=== PATIENT | female | born 1975 | race Two or more races ===

== ENCOUNTER 2025-06-11 10:02 | Emergency (ER) | payer MEDICAID, SELFPAY ==
[2025-06-11 10:03] VITALS: BMI 29.0
[2025-06-11 10:22] VITALS: BP 136/70; PULSE 78; RESP 18; TEMP 36.9; O2SAT 99
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
--- NOTE | 2025-06-11 11:48 | PC.NURSE ---
PT CALLED IN ED LOBBY AND OUTSIDE ED LOBBY; NO RESPONSE AT THIS TIME
--- NOTE | 2025-06-11 12:15 | PC.NURSE ---
pt called inside and outside ED lobby; no response at this time
--- NOTE | 2025-06-11 12:45 | PC.NURSE ---
pt not inside/outside ED lobby at this time
== END 2025-06-11 13:37 | disposition home or self-care (01) ==
PROVIDERS: Emergency Provider Emergency Medicine
DX: S09.90XA Unspecified injury of head, initial encounter (principal); S13.4XXA Sprain of ligaments of cervical spine, initial encounter; V89.2XXA Person injured in unspecified motor-vehicle accident, traffic, initial encounter; Y92.410 Unspecified street and highway as the place of occurrence of the external cause
CPT/HCPCS: 70450; 72125; 99282

== ENCOUNTER 2025-07-03 23:55 | Emergency (ER) | payer MEDICAID, SELFPAY ==
[2025-07-03 23:57] VITALS: BMI 30.1
[2025-07-04 00:09] VITALS: BP 147/91; PULSE 87; RESP 18; TEMP 36.6; O2SAT 98
--- NOTE | 2025-07-04 00:30 | EKG_ITS ---
[facility] Test Date: 2025-07-04 Pat Name: FERNY JUDD Department: Room: - Gender: Female Copy Messenger: : 1975 Requested By: Efren Frey Order Number: [id number] Reading MD: Efren Frey Measurements Intervals Guild Rate: 78 P: 46 WA: 147 QRS: 45 QRSD: 78 T: 58 QT: 386 QTc: 442 Interpretive Statements SINUS RHYTHM No previous ECG available for comparison /store/S0/[id number]/[id number].pdf
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
[2025-07-04] MEDS: DIAZEPAM 5 MG TABLET PO (00:45)
== END 2025-07-04 00:48 | disposition left against medical advice (07) ==
LOC: SERX 07-04 01:46
PROVIDERS: Emergency Provider Emergency Medicine
DX: R00.2 Palpitations (principal); R11.0 Nausea; R51.9 Headache, unspecified; R06.02 Shortness of breath; I10 Essential (primary) hypertension; Z53.29 Procedure and treatment not carried out because of patient's decision for other reasons
CPT/HCPCS: 80053; 84484; 85025; 85379; 99282; A9270